=== PATIENT | female | born 1945 | race Caucasian/White ===

== ENCOUNTER 2019-07-16 15:33 | Inpatient (IN) | payer MEDICARE ==
--- NOTE | 2019-07-16 15:55 | ED Physician Chart ---
ED Chief Complaint/HPI - Patient Information Date Seen:: 07/16/19 Time Seen:: 15:30 Chief Complaint:: Chest Pain History of Present Illness:: onset x 2 days of intermittent, tightness type chest pain and dyspnea; pt denies trauma, H/As, neck pain, cough, abd. Pain, A/N/V/D/C, fever, chills, or urinary s/s Historian:: Patient, Family Member Review:: Nurse's Note Reviewed, Old Chart Reviewed ED Review of Systems - Review of Systems General/Constitutional: Fever, No chills, No weight loss, No weakness, No diaphoresis, No edema, No loss of appetite Skin: No skin lesions, No rash, No bruising Head: No headache, No light-headedness Eyes: No loss of vision, No pain, No diplopia ENT: No earache, No nasal drainage, No sore throat, No tinnitus Neck: No neck pain, No swelling, No thyromegaly, No stiffness, No mass noted Cardio Vascular: Chest pain, No palpitations, No PND, No orthopnea, No edema Pulmonary: SOB, Cough, No sputum, No wheezing GI: No nausea, No vomiting, No diarrhea, No pain, No melena, No hematochezia, No constipation, No hematemesis G/U: No dysuria, No frequency, No hematuria, No nacturia Mounter Automatic: No vaginal discharge, No abnormal vaginal bleed, No contraction Musculoskeletal: No bone or joint pain, No back pain, No muscle pain Endocrine: No polyuria, No polydipsia Psychiatric: No prior psych history, No depression, No anxiety, No suicidal ideation, No homicidal ideation, No auditory hallucination, No visual hallucination Hematopoietic: No bruising, No lymphadenopathy Allergic/Immuno: No urticaria, No angioedema Neurological: No syncope, No focal symptoms, No weakness, No paresthesia, No headache, No seizure, No dizziness, No confusion, No vertigo ED Past Medical History - Past Medical History Obtainable: Yes Past Medical History: HTN, Dyslipidemia Family History: HTN Social History: Non Smoker, No Alcohol, No Drug Use, Surgical History: None Psychiatricy History: None Medication: Reviewed Family Medical History - Family Member Mother History Unknown: Yes Paternal Grandmother Hx Family Coronary Artery Disease: Yes ED Physical Exam - Physical Examination General/Constitutional: Awake, Well-developed, well-nourished, Alert, No distress, GCS 15, Non-toxic appearing, Ambulatory Head: Atraumatic Eyes: Lids, conjuctiva normal, PERRL, EOMI Skin: Nl inspection, No rash, No skin lesions, No ecchymosis, Well hydrated, No lymphadenopathy ENMT: External ears, nose nl, TM canals nl, Nasal exam nl, Lips, teeth, gums nl , Oropharynx nl, Tonsils nl Neck: Nontender, Full ROM w/o pain, No JVD, No nuchal rigidity, No bruit, No mass, No stridor Respiratory: Nl effort/Exclusion, Clear to Auscultation, No Wheeze/Rhonchi/Rales Cardio Vascular: No murmur, gallop, rubs, NL S1 S2, Carotid/Femoral/Distal pulses equal bilaterally Other Cardio Vascular comments:: Irregular Irregular Rhythm GI: No tenderness/rebounding/guarding, No organomegaly, No hernia, Normal BS's, Nondistended, No mass/bruits, No McBurney tenderness : No CVA tenderness Extremities: No tenderness or effusion, Full ROM, normal strength in all extremities, No edema, Normal digits & nails Neuro/Psych: Alert/oriented, DTR's symmetric, Normal sensory exam, Normal motor strength, Judgement/insight normal, Mood normal, Normal gait, No focal deficits Misc: Normal back, No paraspinal tenderness ED Labs/Radiology/EKG Results - Lab Results Comments:: Reviewed - Radiology Results Comments:: COPD; NAD - EKG Interpretations EKG Time:: 15:52 Rate & Rhythm: 152; Atrial Fibrillation Comments:: non-specific st-t changes ED Septic Shock - . Is Septic Shock (SBP<90, OR Lactate>4 mmol\L) present?: No ED Reassessment (Disposition) - Reassessment Reassessment Condition:: Improved - Diagnosis Diagnosis:: Chest Pain; Dyspnea; Angina Pectoris; Unstable Angina; Atrial Fibrillation; Hypokalemia - Aftercare/Follow up Instructions Aftercare/Follow-Up Instructions:: Counseled pt regarding lab results/diagnosis & need follow up, Counseled pt & family regarding lab results/diagnosis & need follow up - Patient Disposition Discharge/Transfer:: Acute Care w/in this hosp Accepting Physician:: Dr. Walls Time Called:: 1700 Time Responded:: 17:00 Admitted to:: Telemetry Spoke to:: Dr. Walls Admitting Medical Physician:: Dr. Walls Condition at Disposition:: Stable, Improved
[2019-07-16 16:26] LABS: INR 1.07 (0.5-1.4)
[2019-07-16 16:30] LABS: % EOSINOPHILS 0.8 % (0.0-5.0); % LYMPHOCYTES 16.6 % (20.0-50.0); % MONOCYTES 5.4 % (2.0-10.0); % NEUTROPHILS 77.2 % (40.0-80.0); EOSINOPHILE ABSOLUTE 0.1 Th/cmm (0.1-0.4); HEMATOCRIT 48.1 % (41.0-60); HEMOGLOBIN 16.1 gm/dL (12-16); LYMPHOCYTE ABSOLUTE 1.8 Th/cmm (1.5-3.0); MEAN CELL VOLUME 87.2 fl (81-100); MEAN CORPUSCULAR HEMOGLOBIN 29.2 pg (27.0-31.0); MEAN CORPUSCULAR HGB CONC 33.5 pg (28.0-36.0); MONOCYTE ABSOLUTE 0.6 Th/cmm (0.3-1.0); NEUTROPHILE ABSOLUTE 8.3 Th/cmm (1.8-8.0); PLATELET COUNT 217 Th/cmm (150-400); RED BLOOD COUNT 5.52 Mil/cmm (3.80-5.20); RED CELL DISTRIBUTION WIDTH 12.2 % (11.5-20.0); WHITE BLOOD COUNT 10.8 Th/cmm (4.8-10.8)
[2019-07-16 16:31] LABS: ALB/GLOB RATIO 1.1 (1.0-1.8); ALKALINE PHOSPHATASE 42 U/L (34-104); ANION GAP 17.2 (7.0-16.0); BILIRUBIN,TOTAL 0.5 mg/dL (0.3-1.0); BUN - UREA NITROGEN 15 mg/dL (7-25); CALCIUM SERUM 9.5 mg/dL (8.6-10.3); CARBON DIOXIDE 22.2 mEq/L (21.0-31.0); CHLORIDE 100 mEq/L (98-107); CHOLESTEROL 149 mg/dL (<200); CREATININE - SERUM 0.9 mg/dL (0.6-1.2); CREATININE KINASE 58 U/L (30-223); GLUCOSE 139 mg/dL (70-105); HDL -HIGH DENSITY LIPOPROTEIN 36 mg/dL (23-92); POTASSIUM SERUM 3.4 mEq/L (3.5-5.1); SGOT 18 U/L (13-39); SGPT/ALT 11 U/L (7-52); SODIUM SERUM 136 mEq/L (136-145); TOTAL PROTEIN,SERUM 7.5 gm/dL (6.0-8.3); TRIGLYCERIDES 87 mg/dL (<150)
[2019-07-16 16:37] LABS: DDIMER QUANT 124 ng/mL (100-400)
[2019-07-16] MEDS ORDERED: Aspirin 325 mg EC PO ONE (16:52)
[2019-07-16] MEDS ORDERED: Potassium Chloride 20 mEq ER Tab PO ONE ×2 (16:52→17:21)
[2019-07-17 05:09] LABS: HEMATOCRIT 42.9 % (41.0-60); HEMOGLOBIN 14.3 gm/dL (12-16); MEAN CELL VOLUME 88.1 fl (81-100); MEAN CORPUSCULAR HEMOGLOBIN 29.4 pg (27.0-31.0); MEAN CORPUSCULAR HGB CONC 33.3 pg (28.0-36.0); PLATELET COUNT 192 Th/cmm (150-400); RED BLOOD COUNT 4.87 Mil/cmm (3.80-5.20); RED CELL DISTRIBUTION WIDTH 11.9 % (11.5-20.0); WHITE BLOOD COUNT 9.8 Th/cmm (4.8-10.8)
[2019-07-17 05:13] LABS: ALB/GLOB RATIO 1.2 (1.0-1.8); ALBUMIN 3.7 gm/dL (3.7-5.3); ALKALINE PHOSPHATASE 37 U/L (34-104); ANION GAP 15.1 (7.0-16.0); BILIRUBIN,TOTAL 0.5 mg/dL (0.3-1.0); BUN - UREA NITROGEN 14 mg/dL (7-25); CALCIUM SERUM 8.9 mg/dL (8.6-10.3); CARBON DIOXIDE 22.4 mEq/L (21.0-31.0); CHLORIDE 102 mEq/L (98-107); CHOLESTEROL 130 mg/dL (<200); CREATININE - SERUM 0.8 mg/dL (0.6-1.2); GLUCOSE 132 mg/dL (70-105); HDL -HIGH DENSITY LIPOPROTEIN 32 mg/dL (23-92); MAGNESIUM 2.1 mg/dL (1.9-2.7); POTASSIUM SERUM 3.5 mEq/L (3.5-5.1); SGOT 16 U/L (13-39); SGPT/ALT 10 U/L (7-52); SODIUM SERUM 136 mEq/L (136-145); TOTAL PROTEIN,SERUM 6.7 gm/dL (6.0-8.3); TRIGLYCERIDES 87 mg/dL (<150)
[2019-07-17 06:57] LABS: BAND NEUTROPHILE 0 % (0-10); BASOPHIL 0 % (0-3); EOSINOPHIL 0 % (0-5); LYMPHOCYTE 20 % (20-50); MONOCYTE 8 % (2-10); NEUTROPHILS 72 % (40-80)
--- NOTE | 2019-07-17 09:45 | Diagnostic Imaging Report ---
CHEST X-RAY: AP view INDICATION: pain COMPARISON: None FINDINGS: Chronic lung changes are seen left basal subsegmental atelectasis versus scarring. No focal consolidation identified. Degenerative changes spine are noted with scoliosis. IMPRESSION: Left basal subsegmental atelectasis versus scarring. No focal consolidation identified. Chronic lung changes. Atherosclerotic vascular disease.
--- NOTE | 2019-07-17 10:18 | History & Physical ---
ADMIT DATE: CHIEF COMPLAINT: Chest tightness, shortness of breath. HISTORY OF PRESENT ILLNESS: The patient is a 74-year-old female with history of hypertension, recently diagnosed with pneumonia, history of heavy nicotine dependence in the past, who presented to the ER with a 2-day history of intermittent chest tightness/pressure that was not associated with diaphoresis, palpitations. The pain/tightness did not radiate to the jaw or upper limbs, but it was somewhat associated with shortness of breath, which is new in her case. She apparently was diagnosed with pneumonia a couple of weeks ago for which she was given Levaquin with improvement of her symptoms. She denies any cardiac history. She denies any history of COPD or chronic bronchitis. Pertinent findings at the ER include an EKG showing atrial fibrillation with rapid ventricular response at a rate of 152 and a troponin level of 0.06. The patient was admitted to the tele cast for further management and care. Of note, the patient's current rhythm is currently sinus since admission. PAST MEDICAL HISTORY: Recently diagnosed with hypertension. Has not had good out patient medical follow-up for years. PAST SURGICAL HISTORY: No major surgeries reported. FAMILY HISTORY: Mom has had a pacemaker placement. Father had COPD. SOCIAL HISTORY: Tobacco, heavy cigarette smoking from age 16 until about a month per patient's account. At the heaviest, she was smoking a pack a day, more recently since her pneumonia, she's cut down to about 8-10 cigarettes daily. Alcohol 2- 3 beers daily until about a month ago. Denies any illicit drug usage. Lives with . ALLERGIES: NKDA. OUTPATIENT MEDICATIONS: Amlodipine 2.5 every day. REVIEW OF SYSTEMS: CONSTITUTIONAL: No fever or chills. No recent weight loss. CARDIOVASCULAR: Please refer to HPI. PULMONARY: She does admit to a chronic cough with white phlegm, but no shortness of breath, no dyspnea on exertion. Denies any orthopnea. GASTROINTESTINAL: No bowel habit changes. GENITOURINARY: No bladder habit changes. NEUROLOGIC: No changes in vision, no headaches, no syncope. PHYSICAL EXAMINATION: VITAL SIGNS: Temperature 98.0, pulse 63, respirations 18, BP 133/70, satting 98% on room air. GENERAL: She is a well-developed, well-nourished female who appears to be in no acute distress, nontoxic appearing. HEAD AND NECK: Normocephalic, atraumatic. Pupils are reactive to light. Extraocular movements are intact. Oropharynx is moist and clear. CARDIAC: Regular rate and rhythm with distant sounds. LUNGS: Diminished at the bases with coarse breath sounds upon deep inspiration. No wheezing or crackles noted at this time. EXTREMITIES: Lower extremities: there is no pedal edema. NEUROLOGIC: Nonfocal exam. Cranial nerves 2-12 are within normal limits. LABORATORY DATA: CBC was essentially within normal limits. INR 1.07. Potassium of 3.4, otherwise within normal limits. Glucose 139. BNP 138. LFTs were within normal limits. DIAGNOSTICS: Atrial fibrillation with rapid ventricular response of 152. Repeat EKG shows sinus rhythm at a rate of 57. X-ray done at the ER, results are pending. IMPRESSION: 1. New onset atrial fibrillation with rapid ventricular response. 2. Chest pressure/tightness. 3. Elevated troponin levels-likely 2ry to cardiac demand given the RVR- monitor. 4. History of essential hypertension. 5. Likely chronic obstructive pulmonary disease/chronic bronchitis-currently stable. 6. recent PNA-clinically stable. PLAN: The patient has been admitted to the tele cast and has been placed on beta cindy and has been started on Xarelto. She will undergo cardiac workup including troponins and 2D echo as well as Cardiology eval. We will follow x-ray results and I have also asked for a thyroid profile. JOB# [id number] TRE
[2019-07-18 07:09] LABS: A1C 5.7 % (4.8-5.6)
--- NOTE | 2019-07-18 15:27 | Discharge Summary ---
DATE OF DISCHARGE: 07/18/2019 ADMITTING DIAGNOSES: 1. Atrial fibrillation with rapid ventricular response. 2. Elevated troponin levels, rule out coronary artery disease, likely represents cardiac demand given her rapid ventricular rate. 3. Chest pain/tightness. 4. History of essential hypertension. 5. History of nicotine dependence. 6. Likely chronic obstructive pulmonary disease/chronic bronchitis. 7. Recent history of pneumonia. SECONDARY DIAGNOSES: 1. Essential hypertension. 2. Nicotine dependence. DISCHARGE DIAGNOSES: 1. New onset atrial fibrillation with rapid ventricular response -- now sinus rhythm. 2. Elevated troponin levels, resolved, likely secondary to cardiac demand given the rapid ventricular response. 3. Chest pressure and tightness -- resolved. Work up negative for acute coronary syndrome. 4. Likely COPD/chronic bronchitis. CONSULTANTS: Dr. Foster, Cardiology. MAJOR PROCEDURES: 2D echo done on 07/17/2019 showed a left ventricular ejection fraction of 74%, left atrial enlargement and right atrial enlargement and left ventricular hypertrophy (on official report). BRIEF HOSPITAL COURSE: This is a 74-year-old female who was recently diagnosed with hypertension and was recently hospitalized for pneumonia, who presented to the ER with a 2-day history of intermittent chest tightness/pressure that was not associated with other angina related symptomatology. She did not complain of palpitations and denied any previous similar episodes. At the ED, she was noted to be in atrial fibrillation with rapid ventricular response of 152. She also had an elevated troponin level of 0.06. She was admitted to [facility], where she was placed on IV fluids, metoprolol and was started on Xarelto. By hospital day #1, she had converted to sinus rhythm and she was clinically asymptomatic. Her blood pressure was noted to be somewhat elevated at times with a highest level being 177/78, therefore she was also started on lisinopril 10 mg every day with improvement of her blood pressure. DISCHARGE MEDICATIONS: Amlodipine 5 mg daily, lisinopril 10 mg every day, metoprolol 12.5 mg b.i.d. and aspirin 81 every day. DISPOSITION: The patient will be discharged home to self-care. I instructed the patient and family to follow up with her primary care doctor, (Dr. Ashley) within 2-3 days and Cardiology, Dr. Foster within a week. CONDITION ON DISCHARGE: Stable. [facility]# [id number] TRE
== END 2019-07-18 11:25 | disposition home or self-care (01) | DRG 309 ==
LOC: ER 15:33 → TELE 19:50
PROVIDERS: ADMIT Internal Medicine; ATTEND Internal Medicine
DX: I48.91 Unspecified atrial fibrillation (principal); I20.0 Unstable angina; I10 Essential (primary) hypertension; J44.9 Chronic obstructive pulmonary disease, unspecified; E78.5 Hyperlipidemia, unspecified; E87.6 Hypokalemia
CPT/HCPCS: 36415-UA; 71045-TC; 80053-TC; 80061-TC; 82550-TC; 83036-90; 83735-TC; 83880-TC; 84436-TC; 84439-90; 84443-TC; 84484-TC; 85007-TC; 85025-TC; 85379-TC; 85610-TC; 93005; 93307-TC